=== PATIENT | male | born 1955 | race Caucasian/White ===

== ENCOUNTER 2023-05-27 11:32 | Emergency (ER) | payer BC ==
[~2023-05-27] VITALS: Ht 172.7 cm; Wt 81.8 kg
[~2023-05-27 11:32] MED LIST: ANTACID PO; ASPIRIN 81M81 MG/TA2 PO; CEPHALEXIN250 M1 PO; LIPITOR20 MG PO; MULTIPLE VITAMI1 CAP PO; ZESTORETIC 12.51 TA1 PO
[2023-05-27 11:34] VITALS: TEMP 96.3
[2023-05-27] MEDS ORDERED: oxyCODONE/Acetaminophen 5-325 MG TAB PO ONE ×2 (12:00→13:00)
[2023-05-27 13:10] VITALS: BP 71/47; PULSE 78
--- NOTE | 2023-05-27 13:37 | NUR ---
Patient was accepted to the [facility] [place] and came to the ED for pain issues. preparation room worker contacted Micky at [facility] and confirmed that patient is accepted today. Worker arranged [facility], per ED physician request to transport patient today at 1:00. Dr Alva is the accepting physician at [facility]. Worker met with patient and advised of the above information. Patient states that his brother is enroute to [facility] and will meet patient there.
== END 2023-05-27 13:10 | disposition home or self-care (01) ==
LOC: COL.ER 11:32
DX: G89.29 Other chronic pain (principal); F17.210 Nicotine dependence, cigarettes, uncomplicated